=== PATIENT | female | born 1965 | race Caucasian/White ===

== ENCOUNTER 2022-04-02 12:16 | Emergency (ER) | payer BC ==
--- NOTE | 2022-04-02 16:08 | ER ---
Nurse's Notes [facility] Name: Laurel Frank Age: 56 yrs Sex: Female : 1965 Arrival Date: 04/02/2022 Time: 12:18 Bed Waiting Private MD: out of town, doctor Diagnosis: Presentation: 04/02 12:28 Chief complaint: Patient states: that approx one hour ago, she was at home working and ap3 she started having chest pain 10/10 that radiated up her neck. patient denies any history of having chest pain before. Coronavirus screen: At this time, the client does not indicate any symptoms associated with coronavirus-19. Ebola Screen: No symptoms or risks identified at this time. Initial Sepsis Screen: Does the patient meet any 2 criteria? No. Patient's initial sepsis screen is negative. Does the patient have a suspected source of infection? No. Patient's initial sepsis screen is negative. Risk Assessment: Do you want to hurt yourself or someone else? Patient reports no desire to harm self or others. Onset of symptoms was April 02, 2022 at 11:30. 12:28 Method Of Arrival: Wheelchair ap3 12:28 Acuity: YUN 3 ap3 Triage Assessment: 12:31 General: Appears uncomfortable, Behavior is calm, cooperative. Pain: Complains of pain ap3 in chest Pain radiates to right arm and neck Pain currently is 10 out of 10 on a pain scale. Neuro: Level of Consciousness is awake, alert, obeys commands, Oriented to person, place, time, situation, Appropriate for age. Cardiovascular: Reports chest pain. Respiratory: Airway is patent Respiratory effort is even, unlabored, Respiratory pattern is regular, symmetrical. Historical: - Allergies: 12:30 Dilaudid; ap3 - PMHx: 12:30 Hypertensive disorder; ap3 - Immunization history:: Client reports receiving the 2nd dose of the Covid vaccine. - Social history:: Smoking status: Patient denies any tobacco usage or history of. Patient uses alcohol, only on a social basis. Screenin:31 Abuse screen: Denies threats or abuse. Nutritional screening: No deficits noted. ap3 Tuberculosis screening: No symptoms or risk factors identified. Vital Signs: 12:28 BP 144 / 76; Pulse 79; Resp 17; Temp 98.1; Pulse Ox 100% ; Weight 127.01 kg; Height 5 ap3 ft. 7 in. (170.18 cm); Pain 10/10; 12:28 Body Mass Index 43.85 (127.01 kg, 170.18 cm) ap3 ED Course: 12:18 Patient arrived in ED. mr 12:18 out of town, doctor is Private Physician. mr 12:30 Triage completed. ap3 12:31 Patient maintains SpO2 saturation greater than 95% on room air. ap3 12:31 Arm band placed on right wrist. ap3 12:32 EKG done, by ED staff. ap3 13:16 Dennis Escalera PA is PHCP. cp 13:16 Antoine Bradford MD is Attending Physician. cp 13:19 Note: called for PT in ED lobby for xray, no answer. Will attempt again. . 1 13:50 Note: called again for pt in lobby for xray, no response. . yrn 15:26 Jose Grullon PA is PHCP. jmm 15:26 Antoine Bradford MD is Attending Physician. corbym Administered Medications: No medications were administered Outcome: 16:07 Patient left the ED. ss Signatures: Jose Grullon PA PA jmm Rivera, Mary mr Hilaria Tee RN RN Dennis Escalera PA PA cp Prokisch, Amanda, RN RN ana3 Pau Vyas Corrections: (The following items were deleted from the chart) 12:31 12:30 Allergies: No Known Allergies; ap3 ap3
[2022-04-02 16:19] VITALS: BP 144/76; TEMP 98.1; O2SAT 100
--- NOTE | 2022-04-03 08:23 | EKG ---
Test Date: 2022-04-02 Test Time: 12:30:04 [employer] Set Up Operator: MEASUREMENT RESULTS: Intervals: Rate: 84 DC: 162 QRSD: 84 QT: 384 QTc: 453 Carbon: P: 52 DC: 162 QRS: 24 T: 30 INTERPRETIVE STATEMENTS: Normal sinus rhythm Normal ECG No previous ECG available for comparison Electronically Signed On 04-03-22 08:18:34 CDT by Nick Levin
== END 2022-04-02 16:07 | disposition left against medical advice (07) ==
LOC: ER 12:16
DX: Z53.21 Procedure and treatment not carried out due to patient leaving prior to being seen by health care provider (principal)
CPT/HCPCS: 93005; 99284

== ENCOUNTER 2022-11-02 19:37 | Emergency (ER) | payer BC ==
--- OUTSIDE RECORDS SUMMARY | 2022-11-02 19:41 | XMS REPORT | Continuity of Care Document ---
:1965 Author Organization [facility] t Address [address] [place] [address] Care Team Providers Name Role Phone Esperanza NIETO, Suzy Oneill Primary Care Physician [phone] REJI MANCILLA Attending Clinician Unavailable LAB90 Attending Clinician Unavailable Reij Choi Attending Clinician MD ANNAMARIA Attending Clinician Unavailable RONALD TIDWELL Attending Clinician Unavailable JERRY GUDINO Attending Clinician Unavailable Ronald Tidwell DO Attending Clinician AURELIANO ROMAN Attending Clinician Unavailable SUZY MATA Attending Clinician Unavailable Payers Payer Name Policy Type Policy Number Effective Date Expiration Date S amanda [facility] 2 [id number] 2021 00:00:00 Problems Condition Condition Condition Status Onset Resolution Last Treating Co mments Source Name Details Category Date Date Treatment Clinician Date Postmenopa Postmenopa Disease Active K elsey usal usal 5-16 Seybold osteoporos osteoporos 00:00: - is is 00 Externa l Allergies Allergies Disease Active Victorino sey 3-10 Seybold 00:00: - 00 Externa l Fatty Fatty Disease Active Ludy liver liver 3-10 Seybold 00:00: - 00 Externa l Class 3 Class 3 Disease Active Ludy severe severe 3-10 Seybold obesity obesity 00:00: - with body with body 00 Exte rna mass index mass index l (BMI) of (BMI) of 45.0 to 45.0 to 49.9 in 49.9 in adult adult Other Other Disease Active Ludy insomnia insomnia 3-10 Seybol d 00:00: - 00 Externa l Gastroesop Gastroesop Disease Active K bhavna hageal hageal 3-10 Seybold reflux reflux 00:00: - disease disease 00 Externa l Hypertensi Hypertensi Disease Active K bhavna on on 3-10 Seybold 00:00: - 00 Externa l Elevated Elevated Disease Active Kelse y LFTs LFTs 3-10 Seybold 00:00: - 00 Externa l History of History of Disease Active K bhavna iron iron 3-10 Seybold deficiency deficiency 00:00: - 00 Externa l Vitamin D Vitamin D Disease Active Victorino sey deficiency deficiency 3-10 Se ybold 00:00: - 00 Externa l Allergies, Adverse Reactions, Alerts Allergy Allergy Status Severity Reaction(s) Onset Inactive Treating Comm ents Source Name Type Date Date Clinician Ankush Pedersoni Active Other Other Ludy Cough ty to 2-16 reaction( Seybold adverse 00:00: s): - reaction 00 burning Externa s l Hydromor Propensi Active Itching Kelse y phone ty to 3-31 Seybold adverse 00:00: - reaction 00 Externa s l Social History Social Habit Start Date Stop Date Quantity Comments Source Sex Ass[birth year] At [birth year] F Ludy Se ybold - 00:00:00 00:00:00 External Smoking Status Start Date Stop Date Source Never smoked tobacco Ludy Seyb old - External Medications Ordered Filled Start Stop Current Ordering Indication Dosage Frequency Signature Comments Components Source Medication Medication Date Date Medication? Clinician (SIG) Name Name Ascorbic 2021-09 Yes Take by Ludy Acid 125 MG 2-01 mouth Seybold oral 14:48: - Chewable 43 Externa Tablet l Calcium 2021-09 Yes 1200mg Take 1,200 Ke lsey Carbonate-V 2-01 mg by Seybold it D-Min 14:48: mouth - (CALCIUM 43 daily Externa 1200 OR) Patient l takes 2 pills daily (Vit D3 25 MCG) Carisoprodo 2021-09 Yes [id number] 350mg Q.5D Take 1 Ludy l 350 MG 2-01 9103 tablet Seybold oral Tablet 00:00: (350 mg - 00 total) by Externa mouth 2 l times daily as needed for muscle spasms OZEMPIC 2021-09 Yes [id number] .25mg Inject Ke lsey (0.25 or 10-24 0.25 mg Seybold 0.5 00:00: into the - mg/dose) 2 00 skin once Exte rna mg/1.5 mL a week l SQ Solution Pen-Injecto r Amoxicillin 2021-09 Yes [id number] 1{tbl} Take 1 Ludy -Pot 10-24 tablet by Seybold Clavulanate 00:00: mouth 2 - 875-125 MG 00 times Externa oral Tablet daily l methylPREDN 2021-09 Yes [id number] 1{harry} Take 1 harry Ludy ISolone 4 10-24 by mouth Seybol d MG oral 00:00: See Admin - Tablet 00 Instructio Externa Therapy ns Use as l Pack directed guaiFENesin 2021-09 Yes [id number] 5mL Q.[id number] Take 5 mL Ludy -Codeine 10-24 [id number] by mouth 3 Seybold 100-10 00:00: 3D times - MG/5ML oral 00 daily as Exte rna Solution needed for l cough Fluconazole 2021-09- Yes [id number] 150mg Take 1 Ludy 150 MG oral 10-24 tablet Seybo ld Tablet 00:00: 05:59 (150 mg - 00 :00 total) by Externa mouth once l for 1 dose OZEMPIC 2021-09- No [id number] .25mg Inject K elsey (0.25 or 10-24 0.25 mg Seybold 0.5 00:00: 00:00 into the - mg/dose) 2 00 :00 skin once Exte rna mg/1.5 mL a week l SQ Solution Pen-Injecto r Famotidine 2021-09 Yes [id number] TAKE 1 Ludy (PEPCID) 20 1-21 TABLET(20 Sey bold MG oral 00:00: MG) BY - tablet 00 MOUTH Externa EVERY 12 l HOURS Bupropion 2021-09 Yes [id number] 300mg Take 1 K elsey HCL XL 300 1-17 tablet Seybold MG OR TB24 00:00: (300 mg - 00 total) by Externa mouth l daily Propranolol 2021-09 Yes [id number] TAKE 1 Ludy HCl 10 MG 0-10 TABLET(10 Seybo ld oral Tablet 00:00: MG) BY - 00 MOUTH Externa THREE l TIMES DAILY Ondansetron 0 Yes [id number] 4mg Q.[id number] Take 1 Ludy (Zofran 9-21 [id number] tablet (4 S eybold ODT) 4 MG 00:00: 3D mg total) - oral TABLET 00 by mouth Exte rna DISPERSIBLE every 8 l hours as needed for nausea hydroCHLORO 2021-0 Yes [id number] TAKE 1 Ludy thiazide 25 8-16 TABLET BY Sey bold MG oral 00:00: MOUTH - Tablet 00 EVERY DAY Externa IN THE l MORNING hydroCHLORO 2021-0 Yes [id number] TAKE 1 Ludy thiazide 25 8-16 TABLET BY Sey bold MG oral 00:00: MOUTH - Tablet 00 EVERY DAY Externa IN THE l MORNING hydroCHLORO 2021-0 Yes [id number] TAKE 1 Ludy thiazide 25 8-16 TABLET BY Sey bold MG oral 00:00: MOUTH - Tablet 00 EVERY DAY Externa IN THE l MORNING Cyclobenzap 0 Yes [id number] 10mg Q.[id number] Take 1 Ludy rine HCl 10 7-12 [id number] tablet (10 Seybold MG oral 00:00: 3D mg total) - Tablet 00 by mouth 3 Externa times l daily as needed for muscle spasms Metoprolol 0 Yes [id number] 25mg Take 1 K elsey Succinate 7-12 tablet (25 Seyb old 25 MG oral 00:00: mg total) - TABLET SR 00 by mouth Propeller Inspector a 24 HR daily l Trazodone 2021-0 Yes [id number] 50mg Take 1 K elsey HCl 50 MG 7-12 tablet (50 Seyb old oral Tablet 00:00: mg total) - 00 by mouth Externa nightly l Celecoxib 2021-0 Yes [id number] TAKE ONE Ludy 200 MG oral 7-12 CAPSULE BY Se ybold Capsule 00:00: MOUTH - 00 EVERY Externa MORNING l AND ONE CAPSULE EVERY EVENING Ergocalcife 2021-0 Yes [id number] 89710P Take 1 Ludy rol 1.25 MG 7-12 capsule Seybo ld (98279 UT) 00:00: (50,000 - oral 00 units Externa Capsule total) by l mouth once a week Amlodipine Yes [id number] 10mg Take 1 K elsey Besylate 10 6-09 tablet (10 Se ybold MG oral 00:00: mg total) - Tablet 00 by mouth Externa daily l Ascorbic Yes Take by Ludy Acid 125 MG 5-16 mouth Seybold oral 14:43: Chewable 09 Tablet Ferrous 0 202- No [id number] 325mg Take 325 Ludy Sulfate 325 5-16 05-16 mg by Seybol d (65 Fe) MG 14:42: 00:00 mouth oral Tablet 27 :00 daily (with breakfast) Cyclobenzap Yes [id number] 5mg Q.[id number] Take 1 Ludy rine HCl 5 5-16 [id number] tablet (5 Seybold MG oral 00:00: 3D mg total) Tablet 00 by mouth 3 times daily as needed for muscle spasms Ergocalcife 0 Yes [id number] Take 1 Ke lsey rol 1.25 MG 5-16 capsule Seybo ld (77294 UT) 00:00: (50,000 oral 00 units Capsule total) by mouth once a week Calcium Yes [id number] 1500mg Take 1 K elsey Carbonate 5-16 tablet Seybold (Caltrate 00:00: (1,500 mg 600) 1500 00 total) by (600 Ca) MG mouth in oral Tablet the morning and 1 tablet (1,500 mg total) in the evening. Calcium Yes [id number] 1500mg Take 1 K elsey Carbonate 5-16 tablet Seybold (Caltrate 00:00: (1,500 mg - 600) 1500 00 total) by Exter na (600 Ca) MG mouth in l oral Tablet the morning and 1 tablet (1,500 mg total) in the evening. Famotidine Yes [id number] TAKE 1 Ludy (PEPCID) 20 4-25 TABLET(20 Sey bold MG oral 00:00: MG) BY tablet 00 MOUTH EVERY 12 HOURS Celecoxib 0 Yes [id number] 200mg Take 1 Ludy (CeleBREX) 4-20 capsule Seybol d 200 MG oral 00:00: (200 mg Capsule 00 total) by mouth in the morning and 1 capsule (200 mg total) in the evening. Vitamin D, 2021- No [id number] 2{tbl} Take 2 Ludy Cholecalcif 4-14 05-16 tablets by Kathi ellis, 10 00:00: 00:00 mouth MCG (400 00 :00 daily UNIT) oral Capsule Ascorbic Yes Take by Ludy Acid 125 MG 4-11 mouth Seybold oral 09:40: Chewable 45 Tablet Ferrous Yes [id number] 325mg Take 325 Ludy Sulfate 325 4-11 mg by Seybold (65 Fe) MG 09:40: mouth oral Tablet 45 daily (with breakfast) Cetirizine- Yes [id number] 1{tbl} Take 1 Ludy Pseudoephed 4-11 tablet by Sey bold rine 5-120 00:00: mouth in MG oral 00 the Tablet 12 morning Hour and 1 Sustained tablet in Release the evening. Cetirizine- Yes [id number] 1{tbl} Take 1 Ludy Pseudoephed 4-11 tablet by Sey bold rine 5-120 00:00: mouth in - MG oral 00 the Externa Tablet 12 morning l Hour and 1 Sustained tablet in Release the evening. methylPREDN Yes [id number] 1{harry} Take 1 harry Ludy ISolone 4 4-11 by mouth Seybol d MG oral 00:00: See Admin Tablet 00 Instructio Therapy ns Use as Pack directed Amoxicillin Yes [id number] 1{tbl} Take 1 Ludy -Pot 4-11 tablet by Seybold Clavulanate 00:00: mouth in 875-125 MG 00 the oral Tablet morning and 1 tablet in the evening. Cetirizine- Yes [id number] 1{tbl} Take 1 Ludy Pseudoephed 4-11 tablet by Sey bold rine 5-120 00:00: mouth in MG oral 00 the Tablet 12 morning Hour and 1 Sustained tablet in Release the evening. Celecoxib Yes [id number] 200mg Take 1 Ludy (CeleBREX) 4-11 capsule Seybol d 200 MG oral 00:00: (200 mg Capsule 00 total) by mouth in the morning and 1 capsule (200 mg total) in the evening. Cyclobenzap Yes [id number] 5mg Q.[id number] Take 1 Ludy rine HCl 5 -11 [id number] tablet (5 Seybold MG oral 00:00: 3D mg total) Tablet 00 by mouth 3 times daily as needed for muscle spasms methylPREDN 2021- No [id number] 1{harry} Take 1 harry Ludy ISolone 4 01-01-16 by mouth Seybo ld MG oral 00:00: 00:00 See Admin Tablet 00 :00 Instructio Therapy ns Use as Pack directed Amoxicillin 2021- No [id number] 1{tbl} Take 1 Ludy -Pot -07 28-16 tablet by Seybold Clavulanate 00:00: 00:00 mouth in 875-125 MG 00 :00 the oral Tablet morning and 1 tablet in the evening. Fluconazole 2021- No [id number] 150mg Take 1 Ludy 150 MG oral 01-01-12 tablet Seybo ld Tablet 00:00: 04:59 (150 mg 00 :00 total) by mouth once for 1 dose levoFLOXaci 0 Yes 500mg Take 500 K elsey n 500 MG 4-01 mg by Seybold oral Tablet 00:00: mouth 00 daily levoFLOXaci 2021-0 2021- No 500mg Take 500 Ludy n 500 MG 4-01 05-16 mg by Seybold oral Tablet 00:00: 00:00 mouth 00 :00 daily Ascorbic 2021-0 Yes Take by Ludy Acid 125 MG 3-10 mouth Seybold oral 08:02: Chewable 04 Tablet Ferrous 2021-0 Yes [id number] 325mg Take 325 Ludy Sulfate 325 3-10 mg by Seybold (65 Fe) MG 08:02: mouth oral Tablet 04 daily (with breakfast) Cetirizine- Yes [id number] 1{tbl} Take 1 Ludy Pseudoephed 3-10 tablet by Sey bold rine 5-120 00:00: mouth in MG oral 00 the Tablet 12 morning Hour and 1 Sustained tablet in Release the evening. Famotidine 2022-0 Yes [id number] 20mg Take 1 Ludy (PEPCID) 20 3-10 tablet (20 Se ybold MG oral 00:00: mg total) tablet 00 by mouth every 12 hours Famotidine 2021-0 Yes [id number] 20mg Take 1 Ludy (PEPCID) 20 3-10 tablet (20 Se ybold MG oral 00:00: mg total) tablet 00 by mouth every 12 hours Cetirizine- 2021-0 2022- No [id number] 1{tbl} Take 1 Ludy Pseudoephed 3-10 04-11 tablet by Se ybold rine 5-120 00:00: 00:00 mouth in MG oral 00 :00 the Tablet 12 morning Hour and 1 Sustained tablet in Release the evening. Amlodipine 2021-0 Yes [id number] Victorino sey Besylate 10 3-08 Seybold MG oral 00:00: Tablet 00 Carisoprodo 2-0 Yes [id number] Ludy l 350 MG 3-08 9103 Seybold oral Tablet 00:00: 00 Clonazepam 2022-0 Yes [id number] Ke lsey 1 MG oral 3-08 Seybold Tablet 00:00: 00 Metoprolol 2022-0 Yes [id number] Victorino sey Succinate 3-08 Seybold 25 MG oral 00:00: TABLET SR 00 24 HR Trazodone 2-0 Yes [id number] Victorino sey HCl 50 MG 3-08 Seybold oral Tablet 00:00: 00 Clonazepam 2022-0 Yes [id number] Ke lsey 1 MG oral 3-08 Seybold Tablet 00:00: - 00 Externa l Alendronate 2-0 Yes [id number] K elsey Sodium 70 3-08 Seybold MG oral 00:00: Tablet 00 Amlodipine 2-0 Yes [id number] Victorino sey Besylate 10 3-08 Seybold MG oral 00:00: Tablet 00 Carisoprodo 2022-0 Yes [id number] Ludy l 350 MG 3-08 9103 Seybold oral Tablet 00:00: 00 Clonazepam 2022-0 Yes [id number] Ke lsey 1 MG oral 3-08 Seybold Tablet 00:00: 00 Metoprolol 2022-0 Yes [id number] Victorino sey Succinate 3-08 Seybold 25 MG oral 00:00: TABLET SR 00 24 HR Trazodone 2022-0 Yes [id number] Victorino sey HCl 50 MG 3-08 Seybold oral Tablet 00:00: 00 Alendronate 2022-0 Yes [id number] K elsey Sodium 70 3-08 Seybold MG oral 00:00: Tablet 00 Amlodipine 2-0 Yes [id number] Victorino sey Besylate 10 3-08 Seybold MG oral 00:00: Tablet 00 Carisoprodo 2022-0 Yes [id number] Ludy l 350 MG 3-08 9103 Seybold oral Tablet 00:00: 00 Clonazepam 2022-0 Yes [id number] Ke lsey 1 MG oral 3-08 Seybold Tablet 00:00: 00 Metoprolol 2-0 Yes [id number] Victorino sey Succinate 3-08 Seybold 25 MG oral 00:00: TABLET SR 00 24 HR Trazodone 2022-0 Yes [id number] Victorino sey HCl 50 MG 3-08 Seybold oral Tablet 00:00: 00 Carisoprodo 2022-0 2022- No [id number] Ludy l 350 MG 3-08 12-01 9103 Seybold oral Tablet 00:00: 00:00 - 00 :00 Externa l Alendronate 2022-0 2022- No [id number] Ludy Sodium 70 3-08 05-16 Seybold MG oral 00:00: 00:00 Tablet 00 :00 hydroCHLORO 2022-0 Yes [id number] 25mg Take 25 mg Ludy thiazide 25 2-16 by mouth Seyb old MG oral 00:00: every Tablet 00 morning hydroCHLORO 2022-0 Yes [id number] 25mg Take 25 mg Ludy thiazide 25 2-16 by mouth Seyb old MG oral 00:00: every Tablet 00 morning hydroCHLORO 2022-0 Yes [id number] 25mg Take 25 mg Ludy thiazide 25 2-16 by mouth Seyb old MG oral 00:00: every Tablet 00 morning Albuterol 2021-0 Yes Ludy HFA 108 (90 2-13 Seybold Base) 00:00: MCG/ACT IN 00 AERS Albuterol 2021-0 Yes Ludy HFA 108 (90 2-13 Seybold Base) 00:00: - MCG/ACT IN 00 Externa AERS l Albuterol 2021-0 Yes Ludy HFA 108 (90 2-13 Seybold Base) 00:00: MCG/ACT IN 00 AERS Aspirin EC 2021-0 Yes 325mg Take 325 Ke lsey 325 MG oral 2-13 mg by Seybold Tablet 00:00: mouth in Delayed 00 the Response morning. Montelukast 2021-0 Yes [id number] 1{tbl} Take 1 Ludy (SINGULAIR) 2-13 tablet by Sey bold 10 MG oral 00:00: mouth in Tablet 00 the tablet morning. Albuterol Yes Ludy HFA 108 (90 2-13 Seybold Base) 00:00: MCG/ACT IN 00 AERS Aspirin EC 2021- No 325mg Take 325 K elsey 325 MG oral 2-13 04-11 mg by Seybol d Tablet 00:00: 00:00 mouth in Delayed 00 :00 the Response morning. Montelukast 2021- No [id number] 1{tbl} Take 1 Ludy (SINGULAIR) 2-03 01-11 tablet by Se ybold 10 MG oral 00:00: 00:00 mouth in Tablet 00 :00 the tablet morning. Famotidine 2021- No 20mg Take 20 mg Ludy (PEPCID) 20 2- 03-10 by mouth Sey bold MG oral 00:00: 00:00 every 12 tablet 00 :00 hours Baclofen 5 2020-0 Yes [id number] 1{tbl} Q.5D Take 1 Ludy MG oral 7-30 9103 tablet by Seybold Tablet 00:00: mouth as 00 needed in the morning and 1 tablet as needed in the evening. Baclofen 5 2020-0 2021- No [id number] 1{tbl} Q.5D Take 1 Ludy MG oral 7-30 04-11 9103 tablet by Seybol d Tablet 00:00: 00:00 mouth as 00 :00 needed in the morning and 1 tablet as needed in the evening. Ergocalcife 2020-0 2021- No [id number] Take Ludy rol 1.25 MG 04-12- 50,000 Seybo ld (94489 UT) 00:00: 04:59 units by oral 00 :00 mouth once Capsule a week Ergocalcife 2021- No [id number] Take Ludy rol 1.25 MG 04-12 50,000 Seybo ld (16328 UT) 00:00: 04:59 units by oral 00 :00 mouth once Capsule a week Ergocalcife 2- No [id number] Take Ludy rol 1.25 MG 04-12 50,000 Seybo ld (08357 UT) 00:00: 00:00 units by oral 00 :00 mouth once Capsule a week Immunizations Ordered Immunization Filled Immunization Date Status Commen ts Source Name Name Covid-19 Vaccine 2021-01-02 Completed Ludy sanon Moderna (Spikevax), 00:00:00 Mrna-lnp, Murray Protein, Pf Covid-19 Vaccine 2021-01-02 Completed Ludy sanon Moderna (Spikevax), 00:00:00 Mrna-lnp, Murray Protein, Pf Covid-19 Vaccine 2021-01-02 Completed Ludy sanon Moderna (Spikevax), 00:00:00 - Ext ernal Mrna-lnp, Murray Protein, Pf Covid-19 Vaccine 2021-01-02 Completed Ludy sanon Moderna (Spikevax), 00:00:00 Mrna-lnp, Murray Protein, Pf Covid-19 Vaccine 2020-12-05 Completed Ludy sanon Moderna (Spikevax), 00:00:00 Mrna-lnp, Murray Protein, Pf Covid-19 Vaccine 2020-12-05 Completed Ludy sanon Moderna (Spikevax), 00:00:00 Mrna-lnp, Murray Protein, Pf Covid-19 Vaccine 2020-12-05 Completed Ludy sanon Moderna (Spikevax), 00:00:00 - Ext ernal Mrna-lnp, Murray Protein, Pf Covid-19 Vaccine 2020-12-05 Completed Ludy sanon Moderna (Spikevax), 00:00:00 Mrna-lnp, Murray Protein, Pf Tdap- (Boostrix, 2020-06-08 Completed Ludy S eybold Adacel) 00:00:00 Tdap- (Boostrix, 2020-06-08 Completed Ludy S eybold Adacel) 00:00:00 Tdap- (Boostrix, 2020-06-08 Completed Ludy S eybold Adacel) 00:00:00 - External Tdap- (Boostrix, 2020-06-08 Completed Ludy S eybold Adacel) 00:00:00 Tdap- (Boostrix, 2011-07-18 Completed Ludy S eybold Adacel) 00:00:00 Tdap- (Boostrix, 2011-07-18 Completed Ludy S eybold Adacel) 00:00:00 Tdap- (Boostrix, 2011-07-18 Completed Ludy S eybold Adacel) 00:00:00 - External Tdap- (Boostrix, 2011-07-18 Completed Ludy S eybold Adacel) 00:00:00 DTP- 1971-01-20 Completed Ludy Seybold Diphtheria,Tetanus,P 00:00:00 ertussis OPV- Oral Polio 1971-01-20 Completed Ludy Se ybold Vaccine 00:00:00 DTP- 1971-01-20 Completed Ludy Seybold Diphtheria,Tetanus,P 00:00:00 ertussis OPV- Oral Polio 1971-01-20 Completed Ludy Se ybold Vaccine 00:00:00 DTP- 1971-01-20 Completed Ludy Seybold Diphtheria,Tetanus,P 00:00:00 - Ex ternal ertussis OPV- Oral Polio 1971-01-20 Completed Ludy Se ybold Vaccine 00:00:00 - External DTP- 1971-01-20 Completed Ludy Seybold Diphtheria,Tetanus,P 00:00:00 ertussis OPV- Oral Polio 1971-01-20 Completed Ludy Se ybold Vaccine 00:00:00 DTP- 1968-11-20 Completed Ludy Magdalenoybold Diphtheria,Tetanus,P 00:00:00 ertussis DTP- 1968-11-20 Completed Ludy Magdalenoybold Diphtheria,Tetanus,P 00:00:00 ertussis DTP- 1968-11-20 Completed Ludy Seybold Diphtheria,Tetanus,P 00:00:00 - Ex ternal ertussis DTP- 1968-11-20 Completed Ludy Seybold Diphtheria,Tetanus,P 00:00:00 ertussis OPV- Oral Polio 1966-02-20 Completed Ludy Se ybold Vaccine 00:00:00 OPV- Oral Polio 1966-02-20 Completed Ludy Se ybold Vaccine 00:00:00 OPV- Oral Polio 1966-02-20 Completed Ludy Se ybold Vaccine 00:00:00 - External OPV- Oral Polio 1966-02-20 Completed Ludy Se ybold Vaccine 00:00:00 DTP- 1965-11-11 Completed Ludy Magdalenoybold Diphtheria,Tetanus,P 00:00:00 ertussis DTP- 1965-11-11 Completed Ludy Magdalenoybold Diphtheria,Tetanus,P 00:00:00 ertussis DTP- 1965-11-11 Completed Ludy Magdalenoybold Diphtheria,Tetanus,P 00:00:00 - Ex ternal ertussis DTP- 1965-11-11 Completed Ludy Magdalenoybold Diphtheria,Tetanus,P 00:00:00 ertussis OPV- Oral Polio 1965-06-26 Completed Ludy Se ybold Vaccine 00:00:00 OPV- Oral Polio 1965-06-26 Completed Ludy Se ybold Vaccine 00:00:00 OPV- Oral Polio 1965-06-26 Completed Ludy Se ybold Vaccine 00:00:00 - External OPV- Oral Polio 1965-06-26 Completed Ludy Se ybold Vaccine 00:00:00 OPV- Oral Polio 1965-04-26 Completed Ludy Se ybold Vaccine 00:00:00 OPV- Oral Polio 1965-04-26 Completed Ludy Se ybold Vaccine 00:00:00 OPV- Oral Polio 1965-04-26 Completed Ludy Se ybold Vaccine 00:00:00 - External OPV- Oral Polio 1965-04-26 Completed Ludy Se ybold Vaccine 00:00:00 DTP- 1965-03-26 Completed Ludy Magdalenoybold Diphtheria,Tetanus,P 00:00:00 ertussis DTP- 1965-03-26 Completed Ludy Magdalenoybold Diphtheria,Tetanus,P 00:00:00 ertussis DTP- 1965-03-26 Completed Ludy Magdalenoybold Diphtheria,Tetanus,P 00:00:00 - Ex ternal ertussis DTP- 1965-03-26 Completed Ludy Diopold Diphtheria,Tetanus,P 00:00:00 ertussis DTP- 1965-02-24 Completed Ludy Colindres Diphtheria,Tetanus,P 00:00:00 ertussis DTP- 1965-02-24 Completed Ludy Diopold Diphtheria,Tetanus,P 00:00:00 ertussis DTP- 1965-02-24 Completed Ludy Colindres Diphtheria,Tetanus,P 00:00:00 - Ex ternal ertussis DTP- 1965-02-24 Completed Ludy Magdalenoybold Diphtheria,Tetanus,P 00:00:00 ertussis DTP- 1965-01-24 Completed Ludy Diopold Diphtheria,Tetanus,P 00:00:00 ertussis DTP- 1965-01-24 Completed Ludy Diopold Diphtheria,Tetanus,P 00:00:00 ertussis DTP- 1965-01-24 Completed Ludy Diopold Diphtheria,Tetanus,P 00:00:00 - Ex ternal ertussis DTP- 1965-01-24 Completed Ludy Colindres Diphtheria,Tetanus,P 00:00:00 ertussis Vital Signs Vital Name Observation Time Observation Value Comments Source Systolic blood 2022-08-23 20:45:00 136 mm[Hg] Ludy Magdalenoybold - pressure External Diastolic blood 2022-08-23 20:45:00 62 mm[Hg] Indra Colindres - pressure External Heart rate 2022-08-23 20:45:00 117 /min Ludy Kathi talita - External Body temperature 2022-08-23 20:45:00 35.56 Leslie Tere abdullahi Seybold - External Respiratory rate 2022-08-23 20:45:00 16 /min Tere abdullahi Seybold - External Body height 2022-08-23 20:45:00 170.2 cm Ludy Kathi bradlyboaaliyah - External Body weight 2022-08-23 20:45:00 139.254 kg Ludy Kathi bradlyboaaliyah - External BMI 2022-08-23 20:45:00 48.08 kg/m2 Ludy abdullahibold - External Systolic blood 2022-02-05 19:40:00 135 mm[Hg] Ludy Diopold pressure Diastolic blood 2022-02-05 19:40:00 79 mm[Hg] Kelse y Seybold pressure Heart rate 2022-02-05 19:40:00 86 /min Ludy S eybold Body temperature 2022-02-05 19:40:00 36.72 Leslie Tere ey Seybold Respiratory rate 2022-02-05 19:40:00 18 /min Tere ey Seybold Body height 2022-02-05 19:40:00 167.6 cm Ludy S eybold Body weight 2022-02-05 19:40:00 136.986 kg Ludy S eybold BMI 2022-02-05 19:40:00 48.74 kg/m2 Ludy S eybold Systolic blood 2022-01-01 14:38:00 126 mm[Hg] Ludy Seybold pressure Diastolic blood 2022-01-01 14:38:00 64 mm[Hg] Kelse y Seybold pressure Heart rate 2022-01-01 14:38:00 88 /min Ludy S eybold Body temperature 2022-01-01 14:38:00 37.28 Leslie Tere ey Seybold Respiratory rate 2022-01-01 14:38:00 14 /min Tere ey Seybold Body height 2022-01-01 14:38:00 170.2 cm Ludy S eybold Body weight 2022-01-01 14:38:00 135.172 kg Ludy S eybold BMI 2022-01-01 14:38:00 46.67 kg/m2 Ludy Armenta eybold Oxygen saturation in 2022-01-01 14:38:00 99 /min Ludy Seybold Arterial blood by Pulse oximetry Systolic blood 2021-11-30 13:51:00 120 mm[Hg] Ludy Seybold pressure Diastolic blood 2021-11-30 13:51:00 68 mm[Hg] Kelse y Seybold pressure Heart rate 2021-11-30 13:51:00 97 /min Ludy S eybold Body temperature 2021-11-30 13:51:00 36.17 Leslie Tere ey Seybold Respiratory rate 2021-11-30 13:51:00 12 /min Tere ey Seybold Body height 2021-11-30 13:51:00 170.2 cm Ludy sanon Body weight 2021-11-30 13:51:00 135.172 kg Ludy sanon BMI 2021-11-30 13:51:00 46.67 kg/m2 Ludy abdullahijeremias Procedures This patient has no known procedures. Encounters Start End Encounter Admission Attending Care Care Encounter Source Date/Time Date/Time Type Type Clinicians Facility Department ID 2022-11-01 2022-11-01 Outpatient LUDY MANCILLA [id number] Ludy 00:00:00 00:00:00 REJI Seybol d 2022-10-30 2022-10-30 Outpatient LUDY MANCILLA [id number] [facility] 00:00:00 00:00:00 REJI Seybol d 2022-09-18 2022-09-18 Outpatient LUDY MANCILLA [id number] [facility] 00:00:00 00:00:00 REJI Seybol d 2022-09-10 2022-09-10 Outpatient LUDY MANCILLA [id number] [facility] 00:00:00 00:00:00 REJI Seybol d 2022-09-06 2022-09-06 Outpatient LUDY MANCILLA [id number] [facility] 00:00:00 00:00:00 REJI Seybol d 2022-08-29 2022-08-29 Outpatient LUDY MANCILLA [id number] [place] 00:00:00 00:00:00 REJI Seybol d 2022-08-27 2022-08-27 Outpatient LUDY MANCILLA [id number] [place] 00:00:00 00:00:00 REJI Seybol d 2022-08-24 2022-08-24 Outpatient LUDY MANCILLA [id number] [place] 00:00:00 00:00:00 REJI Seybol d 2022-08-23 2022-08-23 Outpatient LUDY MANCILLA [id number] [place] 15:00:00 15:00:00 REJI Seybol d 2022-08-23 2022-08-23 Outpatient LUDY MANCILLA [id number] [place] 00:00:00 00:00:00 REJI Seybol d 2022-06-13 2022-06-13 Outpatient LUDY MANCILLA LUDY [id number] [place] 00:00:00 00:00:00 REJI Seybol d 2022-06-05 2022-06-05 Outpatient LUDY MANCILLA LUDY [id number] [place] 00:00:00 00:00:00 REJI Seybol d 2022-06-04 2022-06-04 Outpatient [facility] LUDY PABLO [id number] [place] 00:00:00 00:00:00 REJI Seybol d 2022-05-31 2022-05-31 Outpatient [facility] LUDY PABLO [id number] [place] 13:45:00 13:45:00 Seybol d 2022-05-31 2022-05-31 Office [place] [facility] [id number] [place] 13:00:00 13:30:00 Visit Reji Kidd [id number] [id number] 2022-05-31 2022-05-31 Outpatient EMERITANancy LUDY PABLO [id number] [place] 00:00:00 00:00:00 REJI Seybol d 2022-05-23 2022-05-23 Outpatient MYHARI LUDY PABLO [id number] [place] 00:00:00 00:00:00 MD MONICA Seybol d 2022-04-26 2022-04-26 Outpatient LINWOOD PABLO [id number] [place] 00:00:00 00:00:00 MD MONICA Seybol d 2022-04-11 2022-04-11 Outpatient EMERITANancy LUDY PABLO [id number] [place] 00:00:00 00:00:00 REJI Seybol d 2022-04-09 2022-04-09 Outpatient EMERITANancyLUDY [id number] [place] 00:00:00 00:00:00 REJI Seybol d 2022-04-03 2022-04-03 Office Nadeem Mancilla [id number] [place] 08:30:00 09:00:00 Visit Reji Kidd [id number] Se ybold [id number] 2022-04-03 2022-04-03 Outpatient DAKOTA LUDY PABLO [id number] [place] 00:00:00 00:00:00 REJI Seybol d 2022-03-07 2022-03-07 Outpatient RONALD TIDWELL LUDY PABLO [id number] [place] 00:00:00 00:00:00 Seybol d 2022-03-05 2022-03-05 Outpatient SHAHAB LUDY PABLO [id number] [place] 00:00:00 00:00:00 PURVIBEN Seybo ld 2022-03-02 2022-03-02 Outpatient LAB90 LUDY PABLO [id number] [place] 07:30:00 07:30:00 Seybol d 2022-03-01 2022-03-01 Outpatient RONALD TIDWELL LUDY PABLO [id number] [place] 00:00:00 00:00:00 Seybol d 2022-02-28 2022-02-28 Outpatient RONALD TIDWELL LUDY PABLO [id number] [place] 00:00:00 00:00:00 Seybol d 2022-02-26 2022-02-26 Outpatient DAKOTA LUDY PABLO [id number] [place] 00:00:00 00:00:00 REJI Seybol d 2022-02-26 2022-02-26 Outpatient RONALD TIDWELL LUDY PABLO [id number] [place] 00:00:00 00:00:00 Seybol d 2022-02-15 2022-02-15 Outpatient DAKOTA LUDY PABLO [id number] [place] 00:00:00 00:00:00 REJI Seybol d 2022-02-05 2022-02-05 Office DerekRonald VIOLETA [id number] [place] 15:15:00 15:45:00 Visit Srinath [id number] Se ybold [id number] 2022-02-05 2022-02-05 Outpatient DAKOTA LUDY PABLO [id number] [place] 00:00:00 00:00:00 REJI Seybol d 2022-01-08 2022-01-08 Outpatient JESSIE LUDY PABLO [id number] [place] 00:00:00 00:00:00 AURELIANO Seybol d 2022-01-04 2022-01-04 Outpatient DAKOTA LDUY PABLO [id number] [place] 00:00:00 00:00:00 REJI Seybol d 2022-01-03 2022-01-03 Outpatient DAKOTA LUDY PABLO [id number] [place] 00:00:00 00:00:00 REJI Seybol d 2022-01-03 2022-01-03 Outpatient DAKOTA LUDY PABLO [id number] [place] 00:00:00 00:00:00 REJI Seybol d 2022-01-03 2022-01-03 Outpatient ESPERANZALUDY [id number] [place] 00:00:00 00:00:00 SUZY Seybol d 2022-01-02 2022-01-02 Outpatient DAKOTA LUDY PABLO [id number] [place] 00:00:00 00:00:00 REJI Seybol d 2022-01-01 2022-01-01 Outpatient LAB90 LUDY PABLO [id number] [place] 10:15:00 10:15:00 Seybol d 2022-01-01 2022-01-01 Office Nadeem Mancilla [id number] [place] 09:00:00 09:30:00 Visit Reji Kidd [id number] Se ybold [id number] 2022-01-01 2022-01-01 Outpatient LUDY MANCILLA [id number] [place] 00:00:00 00:00:00 REJI Seybol d 2021-12-27 2021-12-27 Outpatient LUDY MANCILLA [id number] [place] 00:00:00 00:00:00 REJI Seybol d 2021-12-01 2021-12-01 Outpatient LUDY MANCILLA [id number] [place] 00:00:00 00:00:00 REJI Seybol d 2021-11-30 2021-11-30 Office Nadeem Mancilla [id number] [place] 08:00:00 08:45:00 Visit Reji Kidd [id number] Se toscano [id number] 2021-11-30 2021-11-30 Outpatient LUDY MANCILLA [id number] [place] 00:00:00 00:00:00 REJI vidal Results This patient has no known results.
[2022-11-02 20:12] LABS: Absolute Lymphocytes (CBC) 1.4 K/uL (0.7-4.9); Hematocrit 40.5 % (36.0-45.0); Lymphocytes % 21.3 % (15.3-44.8); MCV 87.2 fL (80-100); RBC Red Blood Cell Count 4.64 M/uL (3.86-4.86)
[2022-11-02 20:15] LABS: Protime INR 1.05
--- NOTE | 2022-11-02 20:22 | RAD REPORT ---
EXAM DESCRIPTION: RAD - Forearm Right - 11/02/2022 8:12 pm CLINICAL HISTORY: PAIN COMPARISON: No comparisons FINDINGS/IMPRESSION: No acute fracture. No malalignment. No significant focal degenerative changes.
--- NOTE | 2022-11-02 20:22 | RAD REPORT ---
EXAM DESCRIPTION: RAD - Chest Single View - 11/02/2022 8:12 pm CLINICAL HISTORY: CHEST PAIN COMPARISON: Chest Pa And Lat (2 Views) dated 08/23/2022 FINDINGS: Lines: None. Lungs: No evidence of edema or pneumonia. Pleural: No significant pleural effusions or pneumothorax. Cardiac: Mild enlarged silhouette. Mediastinum: Within normal limits. Bones: No acute fractures. Other: None IMPRESSION: No acute cardiopulmonary disease.
--- NOTE | 2022-11-02 20:23 | RAD REPORT ---
EXAM DESCRIPTION: RAD - Knee Right 3 View - 11/02/2022 8:12 pm CLINICAL HISTORY: PAIN COMPARISON: No comparisons FINDINGS/IMPRESSION: No acute fracture. No malalignment. Moderate to severe lateral compartment narr owing. Osteopenia. Patellofemoral compartment spurring.
[2022-11-02 20:34] LABS: Potassium 3.4 mmol/L (3.5-5.1)
[2022-11-02] MEDS ORDERED: MORPHINE 4 MG/ML SYR ONE ×2 (20:52→22:09)
[2022-11-02] MEDS ORDERED: ONDANSETRON 4 MG/2 ML VIAL ONE (20:52)
--- NOTE | 2022-11-02 21:37 | RAD REPORT ---
EXAM DESCRIPTION: CT - Head C Spine Cap Ilia Whittington - 11/02/2022 9:21 pm CLINICAL HISTORY: Trauma, head and neck injury. Chest, abdomen and pelvis pain. fall COMPARISON: No comparisons TECHNIQUE: CT head without contrast. CT cervical spine without contrast with coronal and sagittal reformatted images. CT chest, abdomen and pelvis with coronal and sagittal reformatted images of the spine. All CT scans are performed using dose optimization technique as appropriate and may include automated exposure control or mA/KV adjustment according to patient size. FINDINGS: CT HEAD WITHOUT CONTRAST: No intracranial hemorrhage, hydrocephalus or extra-axial fluid collection. No acute large vascular te rritory infarct. The paranasal sinuses and mastoids are clear. The calvarium is intact. CT CERVICAL SPINE WITHOUT CONTRAST: No fracture or subluxation. The prevertebral soft tissues are normal in thickness. CT CHEST, ABDOMEN, PELVIS: Thorax: Chest Wall: No abnormal mass bilateral breast prostheses. Lungs: No acute abnormality. Pleura: No effusions or pneumothorax. Marija/Mediastinum: No lymphadenopathy. Aorta/Pulmonary Arteries: Unremarkable Heart: Normal size. Coronary artery calcifications. Abdomen/Pelvis: Liver: Nodular liver contour. Biliary: No biliary ductal dilatation. Cholecystectomy Stomach: Cale-en-Y gastric bypass. Duodenum: No significant focal abnormality. Pancreas: No significant abnormality. Spleen: Splenomegaly Adrenal: 2.5 cm left adrenal nodule which is indeterminate Kidney/ureter: No hydronephrosis. 2 mm stone in left kidney. Retroperitoneum: No retroperitoneal adenopathy. Vascular: No aneurysm. Bowel: No significant focal abnormality. Peritoneum: No ascites or free air. Bladder: Grossly unremarkable. Reproductive: No adnexal masses. Bones: No acute fracture. Scattered degenerative changes are present in the spine. Other: n/a IMPRESSION: 1. No evidence of significant trauma to the chest abdomen, or pelvis. 2. Indeterminate left adrenal nodule. In the absence of prior imaging, this should be further evaluat ed with adrenal protocol MRI or CT.
[2022-11-02] MEDS ORDERED: TETANUS & DIPHTHERIA TOX,ADULT 0.5 ML VIAL ONE (22:09)
--- NOTE | 2022-11-02 22:59 | ER ---
Nurse's Notes [facility] Name: Laurel Frank Age: 57 yrs Sex: Female : 1965 Arrival Date: 11/02/2022 Time: 19:45 Bed 18 Private MD: Diagnosis: Contusion of unspecified part of head, initial encounter;Contusion of right knee;Chest pain, unspecified-from fall;Pain in right arm-from fall;Dorsalgia, unspecified;Cervicalgia Presentation: 11/02 19:45 Chief complaint: EMS states: 57 year old female fell while walking out of her house. ha1 reports pain on the chest, right arm, and right knee. 19:45 Ebola Screen: No symptoms or risks identified at this time. Risk Assessment: Do you ha1 want to hurt yourself or someone else? Patient reports no desire to harm self or others. 19:45 Method Of Arrival: EMS: [facility] 19:45 Acuity: YUN 3 ha1 19:45 Coronavirus screen: Vaccine status: Patient reports being unvaccinated. ha1 19:45 Mechanism of Injury: Fall from standing position. ha1 19:45 Care prior to arrival: None. Trauma event details: Injury occurred in the [place] [address] 21:22 Initial Sepsis Screen: Does the patient meet any 2 criteria? No. Patient's initial ha1 sepsis screen is negative. Does the patient have a suspected source of infection? No. Patient's initial sepsis screen is negative. Onset of symptoms was November 02, 2022. Triage Assessment: 19:45 General: Appears uncomfortable, Behavior is calm, cooperative. Pain: Complains of pain ha1 in right arm and right knee Pain does not radiate. EENT: No deficits noted. No signs and/or symptoms were reported regarding the EENT system. Neuro: Level of Consciousness is awake, alert, obeys commands, Oriented to person, place, time, situation. Cardiovascular: Capillary refill < 3 seconds Patient's skin is warm and dry. Respiratory: Airway is patent Respiratory effort is even, unlabored, Respiratory pattern is regular, symmetrical. Trauma Activation: Physician: ED Physician; Name: shaq; Notified At: ; Arrived At: Physician: General Surgeon; Name: ; Notified At: ; Arrived At: Physician: Radiology; Name: ; Notified At: ; Arrived At: Physician: Respiratory; Name: ; Notified At: ; Arrived At: Physician: Lab; Name: ; Notified At: ; Arrived At: Historical: - Allergies: 20:33 Dilaudid; ha1 - PMHx: 20:33 Hypertensive disorder; ha1 - Immunization history:: Adult Immunizations up to date. - Social history:: Smoking status: Patient denies any tobacco usage or history of. - Immunization history: Last tetanus immunization: < 5 years ago. Screenin:50 Abuse screen: Denies threats or abuse. Denies injuries from another. ha1 19:50 Nutritional screening: No deficits noted. Tuberculosis screening: No symptoms or risk ha1 factors identified. Primary Survey: 19:45 NO uncontrolled hemorrhage observed. ha1 19:45 A: The client is awake and alert. The airway is patent. Breathing/Chest: Spontaneous ha1 respiratory effort, equal unlabored respirations, breath sounds clear bilaterally, regular pattern, symmetrical chest rise and fall. Respiratory effort: spontaneous, unlabored. Circulation: No external hemorrhage present. Regular and strong central pulse, skin warm/dry/normal color. Disability Pupils are equal, round, reactive to light and accommodation. Exposure/Environment: All clothing and personal items were removed. Forensic evidence collection is not deemed to be indicated at this time. Items placed in patient belonging bag. There is no evidence of uncontrolled external bleeding. Obvious injury(ies) are noted at this time: forehead, right arm, and right knee. A warming method has been applied: A warm blanket has been provided to the patient. 21:50 Reassessment Alertness and Airway: Awake and alert. The airway is patent. Breathing: ha1 Spontaneous respiratory effort, equal unlabored respirations, breath sounds clear bilaterally, regular pattern with symmetrical chest rise and fall. Circulation: No external hemorrhage noted. Regular and strong central pulse, skin warm/dry/normal color. Disability: Pupils Pupils are equal, round, reactive to light and accomodation. Assessment: 20:30 Reassessment: Patient and/or family updated on plan of care and expected duration. Pain ha1 level reassessed. Patient is alert, oriented x 3, equal unlabored respirations, skin warm/dry/pink. pain 8/10. 21:30 Reassessment: Patient and/or family updated on plan of care and expected duration. Pain ha1 level reassessed. Patient is alert, oriented x 3, equal unlabored respirations, skin warm/dry/pink. pain 8/10. notified care provider. 22:10 Reassessment: Patient and/or family updated on plan of care and expected duration. Pain ha1 level reassessed. Patient is alert, oriented x 3, equal unlabored respirations, skin warm/dry/pink. pain 10/10. 23:10 Reassessment: Patient and/or family updated on plan of care and expected duration. Pain ha1 level reassessed. Patient is alert, oriented x 3, equal unlabored respirations, skin warm/dry/pink. pain 7/10. care provider notified. 23:40 Reassessment: awaiting on transportation. [facility] Vital Signs: 19:45 BP 169 / 94; Pulse 102; Resp 20 S; Temp 98.9; Pulse Ox 96% on R/A; Weight 127.01 kg; 1 Height 5 ft. 7 in. (170.18 cm); 20:30 BP 168 / 79; Pulse 95; Resp 16 S; Pulse Ox 96% on R/A; ha1 21:00 BP 173 / 83; Pulse 94; Resp 17 S; Pulse Ox 97% on R/A; ha1 21:15 BP 160 / 78; Pulse 93; Resp 19 S; Pulse Ox 96% on R/A; ha1 22:00 BP 160 / 79; Pulse 93; Resp 18 S; Pulse Ox 97% on R/A; ha1 22:27 BP 171 / 79; Pulse 95; Resp 16 S; Pulse Ox 96% on R/A; ha1 23:20 BP 162 / 75; Pulse 92; Resp 16 S; Pulse Ox 96% ; ha1 19:45 Body Mass Index 43.85 (127.01 kg, 170.18 cm) [facility] Javier Coma Score: 19:45 Eye Response: spontaneous(4). Verbal Response: oriented(5). Motor Response: obeys ha1 commands(6). Total: 15. 20:05 Eye Response: spontaneous(4). Verbal Response: oriented(5). Motor Response: obeys cp commands(6). Total: 15. Trauma Score (Adult): 19:45 Eye Response: spontaneous(1); Verbal Response: oriented(1); Motor Response: obeys ha1 commands(2); Systolic BP: > 89 mm Hg(4); Respiratory Rate: 10 to 29 per min(4); Javier Score: 15; Trauma Score: 12 ED Course: 19:45 Patient arrived in ED. wm 19:45 Patient maintains SpO2 saturation greater than 95% on room air. ha1 19:45 Thermoregulation: warm blanket given to patient. ha1 19:49 Dennis Escalera PA is PHCP. cp 19:49 Antoine Bradford MD is Attending Physician. cp 19:50 Patient has correct armband on for positive identification. Placed in gown. Bed in low ha1 position. Call light in reach. Side rails up X 1. 19:55 Maintain EMS IV. Dressing intact. Good blood return noted. Site clean \T\ dry. Gauge \T\ mondragon 1 site: 20 on the left AC. IV is intact, Flushed left antecubital. 19:58 Basic Metabolic Panel Sent. rv1 19:58 PT-INR Sent. rv1 19:58 CBC with Diff Sent. rv1 19:58 Troponin HS Sent. rv1 20:14 XRAY Chest (1 view) In Process Unspecified. EDMS 20:14 XRAY Knee RIGHT 3 view In Process Unspecified. EDMS 20:14 XRAY Humerus RIGHT In Process Unspecified. EDMS 20:14 XRAY Forearm RIGHT In Process Unspecified. EDMS 20:15 Mildred Arambula, RN is Primary Nurse. ha1 20:33 Triage completed. ha1 21:23 CT Traumagram (Head C Spine CAP W Con) In Process Unspecified. EDMS 22:57 Garrison Poole MD is Referral Physician. cp 23:30 No provider procedures requiring assistance completed. ha1 23:55 Splint/sling/ice applied as appropriate. ha1 23:56 IV discontinued, intact, bleeding controlled, No redness/swelling at site. Pressure ha1 dressing applied. Administered Medications: 20:40 Drug: Zofran (Ondansetron) 4 mg Route: IVP; Site: left antecubital; ha1 21:10 Follow up: Response: No adverse reaction ha1 20:44 Drug: morphine 4 mg Route: IVP; Infused Over: 4 mins; Site: left antecubital; ha1 21:10 Follow up: Response: No adverse reaction; Pain is unchanged, physician notified; RASS: ha1 Alert and Calm (0) 21:15 Drug: morphine 4 mg Route: IVP; Infused Over: 4 mins; Site: left antecubital; ha1 21:45 Follow up: Response: No adverse reaction; Pain is decreased; RASS: Alert and Calm (0) ha1 21:18 Drug: Tetanus-Diphtheria Toxoid Adult 0.5 ml {Vending Technician: [employer]. Exp: ha1 01/27/2024. Lot #: [id number]. } Route: IM; Site: left vastus lateralis; 21:50 Follow up: Response: No adverse reaction ha1 23:24 Drug: HYDROcodone-acetaminophen 10 mg-325 mg 1 tabs Route: PO; ha1 23:45 Follow up: Response: No adverse reaction; Pain is decreased; RASS: Alert and Calm (0) ha1 Medication: 23:55 VIS not applicable for this client. ha1 Outcome: 22:00 Patient's length of stay in the Emergency Department was greater than 2 hours. 1 22:58 Discharge ordered by . ange 23:56 Patient left the ED. ha1 23:56 Discharged to home via wheelchair, with crutches. ha1 23:56 Condition: stable ha1 23:56 Discharge instructions given to patient, family, Instructed on discharge instructions, follow up and referral plans. medication usage, Demonstrated understanding of instructions, follow-up care, medications. Signatures: Dispatcher [employer] EDMS Dennis Escalera PA PA cp Marsh, Wendy wm Ayala, Heidy, RN RN 1 Marlen Salcedo 1
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
[2022-11-02] MEDS ORDERED: DERMABOND SKIN ADHESIVE TOP ONE ×2 (23:10→23:11)
[2022-11-02] MEDS ORDERED: HYDROCODONE/APAP 10/325 TAB ONE (23:40)
[2022-11-03 00:10] VITALS: TEMP 98.9
[2022-11-03 00:14] VITALS: O2SAT 96
[2022-11-03 00:16] VITALS: BP 162/75
== END 2022-11-02 23:56 | disposition home or self-care (01) ==
LOC: ER 19:37
PROC: 0HQ1XZZ Repair Face Skin, External Approach (ICD-10-PCS; principal; 2022-11-02)
DX: S01.81XA Laceration without foreign body of other part of head, initial encounter (principal); S80.01XA Contusion of right knee, initial encounter; R07.89 Other chest pain; M79.601 Pain in right arm; M54.9 Dorsalgia, unspecified; M54.2 Cervicalgia; W18.09XA Striking against other object with subsequent fall, initial encounter; Z23 Encounter for immunization; Z88.5 Allergy status to narcotic agent; I10 Essential (primary) hypertension
CPT/HCPCS: 85025; 80048; 36415; 85610; 84484; 70450; 72125; 71260; 74177; 71045; 73090; 73060; 73562; 90471; 90714; 96375; 96374; 99284; 12011; Q9967; J2405; 93005